=== PATIENT | female | born 1935 | race Caucasian/White ===

== ENCOUNTER 2017-01-03 14:55 | Observation (INO) | payer BC, OTHER ==
--- NOTE | 2017-01-03 16:06 | PDOC ---
History of Present Illness - General Chief Complaint: Syncope/Near Syncope Stated Complaint: PASSED OUT Time Seen by Provider: 01/03/17 16:06 Past History - Past Medical History Allergies/Adverse Reactions: Allergies Allergy/AdvReac Type Severity Reaction Status Date / Time No Known Allergies Allergy Verified 02/04/12 08:45 Home Medications: Ambulatory Orders Escitalopram Oxalate [Lexapro -] 10 mg PO DAILY 11/16/11 Amlodipine Besylate [Norvasc -] 5 mg PO DAILY #0 tablet 11/20/11 Metoprolol Succinate [Toprol XL] 50 mg PO DAILY #0 tablet 11/20/11 Pravastatin Sodium [Pravachol] 40 mg PO HS #0 tablet 11/20/11 Valsartan [Diovan] 160 mg PO DAILY #0 tablet 11/20/11 Acetaminophen [Tylenol .Regular Strength -] 650 mg PO Q4H PRN #0 tablet Amlodipine Besylate [Norvasc -] 5 mg PO DAILY #0 tablet 02/11/12 Atorvastatin Ca [Lipitor] 10 mg PO HS #0 tablet 02/11/12 Cholecalciferol (Vitamin D3) [Vitamin D3 -] 1,000 unit PO DAILY #0 tab 02/11/12 Enoxaparin [Lovenox -] 30 mg SQ BID #0 disp.syrin 02/11/12 Escitalopram Oxalate [Lexapro -] 10 mg PO DAILY #0 tablet 02/11/12 Metoprolol Succinate [Toprol XL -] 50 mg PO DAILY #0 tab.sr.24h 02/11/12 Multivitamins [Multivit ([facility] Formulary)] 1 udtab PO DAILY #0 tab 02/11/12 Oxycodone HCl/Acetaminophen [Percocet 5-325 mg Tablet] 1 combo PO Q4H PRN #0 tablet 02/11/12 Asthma: No Cardiac Disorders: Yes (PACEMAKER) CVA: No CHF: No Diabetes: No HTN: Yes Hypercholesterolemia: Yes - Surgical History Abdominal Surgery: No Cardiac Surgery: Yes (PACEMAKER) Cholecystectomy: Yes Orthopedic Surgery: Yes (L. Ankle) - Suicide/Smoking/Psychosocial Hx Smoking Status: No Smoking History: Never smoked Have you smoked in the past 12 months: No Number of Cigarettes Smoked Daily: 0 Information on smoking cessation initiated: No Hx Alcohol Use: No Drug/Substance Use Hx: No Substance Use Type: None Hx Substance Use Treatment: No *Physical Exam - Vital Signs Last Vital Signs Temp Pulse Resp BP Pulse Ox 97.6 F 67 20 147/69 100 01/03/17 15:09 01/03/17 15:09 01/03/17 15:09 01/03/17 15:09 01/03/17 15:09
[2017-01-03 17:08] LABS: BASOPHIL 0.4 % (0-2.0); EOSINOPHIL 0.8 % (0-4.5); MCH 30.7 pg (25.7-33.7); MCHC 33.1 g/dl (32.0-36.0); MEAN CELL VOLUME 92.8 fl (80-96); MEAN PLT VOLUME 7.9 fl (7.5-11.1); NEUTROPHILS 77.6 % (42.8-82.8); PLATELET COUNT 236 K/MM3 (134-434); RDW 13.1 % (11.6-15.6); WHITE BLOOD COUNT 9.2 K/mm3 (4.0-10.0)
[2017-01-03] MEDS ORDERED: SODIUM CHLORIDE 500 ML IV STA (17:12)
--- NOTE | 2017-01-03 17:18 | PDOC ---
History of Present Illness - General Chief Complaint: Syncope/Near Syncope Stated Complaint: PASSED OUT Time Seen by Provider: 01/03/17 16:06 History Source: Patient Exam Limitations: No Limitations - History of Present Illness Initial Comments: Patient is a 81 Yo F with a PMH of HTN, arthritis, s/p pacemaker (5 years ago) , presented today after witnessed syncopial episode around 2pm while getting into her car. Patient said she was out for about 30 seconds. She felt nauseated immediately after waking up and had 1 episode of vomiting. Patient did not fall or hit her head. She said she had the same symptoms the last time she passed out 5 years ago. She denies shaking movements, loss of bladder control and tongue biting. She denies headaches, fevers, chest pain, diarrhea and abdominal pain. 01/03/17 17:13 Past History - Past Medical History Allergies/Adverse Reactions: Allergies Allergy/AdvReac Type Severity Reaction Status Date / Time No Known Allergies Allergy Verified 02/04/12 08:45 Home Medications: Ambulatory Orders Escitalopram Oxalate [Lexapro -] 10 mg PO DAILY 11/16/11 Amlodipine Besylate [Norvasc -] 5 mg PO DAILY #0 tablet 11/20/11 Metoprolol Succinate [Toprol XL] 50 mg PO DAILY #0 tablet 11/20/11 Pravastatin Sodium [Pravachol] 40 mg PO HS #0 tablet 11/20/11 Valsartan [Diovan] 160 mg PO DAILY #0 tablet 11/20/11 Acetaminophen [Tylenol .Regular Strength -] 650 mg PO Q4H PRN #0 tablet Amlodipine Besylate [Norvasc -] 5 mg PO DAILY #0 tablet 02/11/12 Atorvastatin Ca [Lipitor] 10 mg PO HS #0 tablet 02/11/12 Cholecalciferol (Vitamin D3) [Vitamin D3 -] 1,000 unit PO DAILY #0 tab 02/11/12 Enoxaparin [Lovenox -] 30 mg SQ BID #0 disp.syrin 02/11/12 Escitalopram Oxalate [Lexapro -] 10 mg PO DAILY #0 tablet 02/11/12 Metoprolol Succinate [Toprol XL -] 50 mg PO DAILY #0 tab.sr.24h 02/11/12 Multivitamins [Multivit ([facility] Formulary)] 1 udtab PO DAILY #0 tab 02/11/12 Oxycodone HCl/Acetaminophen [Percocet 5-325 mg Tablet] 1 combo PO Q4H PRN #0 tablet 02/11/12 Asthma: No Cardiac Disorders: Yes (PACEMAKER) CVA: No CHF: No Diabetes: No HTN: Yes Hypercholesterolemia: Yes - Surgical History Abdominal Surgery: No Cardiac Surgery: Yes (PACEMAKER) Cholecystectomy: Yes Orthopedic Surgery: Yes (L. Ankle) - Suicide/Smoking/Psychosocial Hx Smoking Status: No Smoking History: Never smoked Have you smoked in the past 12 months: No Number of Cigarettes Smoked Daily: 0 Information on smoking cessation initiated: No Hx Alcohol Use: No Drug/Substance Use Hx: No Substance Use Type: None Hx Substance Use Treatment: No Review of Systems - Review of Systems Constitutional: No: Chills, Fever, Weakness HEENTM: No: Recent change in vision Respiratory: No: Cough, Wheezing Cardiac (ROS): Yes: Syncope. No: Chest Pain, Palpitations ABD/GI: Yes: Nausea, Vomiting. No: Abdominal Distended, Diarrhea : No: Burning, Dysuria Neurological: No: Headache, Numbness, Paresthesia, Seizure, Tingling, Dizziness *Physical Exam - Vital Signs Last Vital Signs Temp Pulse Resp BP Pulse Ox 97.6 F 67 20 147/69 100 01/03/17 15:09 01/03/17 15:09 01/03/17 15:09 01/03/17 15:09 01/03/17 15:09 - Physical Exam Comments: General: No acute distress, appears comfortable Heent: EOMI, PERRLA, conjunctiva clear Mouth: MMM Heart: Regular rate, no M G R Abdomen: +BS, NT, ND, Soft Ext: No edema, 2+ dp pulses Neuro: no facial droop, symmetrical face, CN 2-12 intact, 5/5 strength throughout 01/03/17 17:28 ED Treatment Course - LABORATORY CBC & Chemistry Diagram: 01/03/17 16:30 01/03/17 16:30 - ADDITIONAL ORDERS Additional order review: Laboratory Results 01/03/17 01/03/17 01/03/17 16:40 16:30 16:30 Sodium 140 Potassium 5.0 D Chloride 105 Carbon Dioxide 31 Anion Gap 4 L BUN 38 H D Creatinine 1.2 H D Creat Clearance w eGFR 43.23 Random Glucose 112 H Calcium 9.8 Total Bilirubin 0.7 AST 18 D ALT 17 Alkaline Phosphatase 45 Troponin I < 0.02 Total Protein 7.4 D Albumin 4.1 D Urine Color Yellow Urine Appearance Cloudy Urine pH 5.0 D Urine Protein Negative Urine Glucose (UA) Negative Urine Ketones Negative Urine Blood 1+ H Urine Nitrite Positive Urine Bilirubin Negative Urine Urobilinogen Negative Urine RBC 5 Urine WBC 388 Ur Epithelial Cells Moderate Urine Bacteria Many Hyaline Casts 5 Urine Mucus Rare 01/03/17 16:30 RBC 3.97 D MCV 92.8 MCHC 33.1 RDW 13.1 MPV 7.9 Neutrophils % 77.6 Lymphocytes % 14.0 Monocytes % 7.2 Eosinophils % 0.8 Basophils % 0.4 - Medications Given in the ED: ED Medications Discontinued Medications Generic Name Dose Route Start Last Admin Trade Name Freq PRN Reason Stop Dose Admin Ceftriaxone Sodium 1,000 mg 01/03/17 17:56 01/03/17 18:41 Rocephin - IVPUSH 01/03/17 17:57 Not Given ONCE ONE Ceftriaxone Sodium 1 gm 01/03/17 17:57 01/03/17 18:45 Rocephin 1gm Ivpb (Pre-Docked) IVPB 01/03/17 17:58 1 gm ONCE ONE Administration Protocol Sodium Chloride 500 mls @ 500 mls/hr 01/03/17 17:12 01/03/17 17:23 Normal Saline - IV 01/03/17 18:11 500 mls/hr ASDIR STA Administration Medical Decision Making - Medical Decision Making #Syncopial Episode - r/o arrhythmia vs. UTI vs. Hypovolemia vs. Vasovagal -EKG with ventricular paced rhythm -previous episode of syncope 5 years ago -Pacemaker placed for dima-arrythmia -UA positive : Ceftriaxone 1gm -CBC WNL #HOLDEN -possibly secondary to volume depletion -UTI -poor oral intake -IV fluids Discussed case with Dr. Elise, agrees to admit patient. 01/03/17 18:02 *DC/Admit/Observation/Transfer Diagnosis at time of Disposition: HOLDEN (acute kidney injury), Dehydration Syncope Qualifiers: Syncope type: unspecified Qualified Code(s): R55 - Syncope and collapse UTI (urinary tract infection) Qualifiers: Urinary tract infection type: site unspecified Hematuria presence: without hematuria Qualified Code(s): N39.0 - Urinary tract infection, site not specified - Discharge Dispostion Condition at time of disposition: Fair Admit: Yes Decision to Admit order Date/Time: Decision to Admit Order Category Date Time Status Decision to Admit to Hospital Routine Admission 01/03/17 18:45 Active - Referrals Referrals: Paolo Gamez MD [Primary Care Provider] -
[2017-01-03 17:30] LABS: URINE APPEARANCE CLOUDY; URINE BILIRUBIN NEGATIVE (NEGATIVE); URINE BLOOD 1+ (NEGATIVE); URINE COLOR YELLOW; URINE GLUCOSE (UA) NEGATIVE (NEGATIVE); URINE KETONE NEGATIVE (NEGATIVE); URINE NITRITE POSITIVE (NEGATIVE); URINE PROTEIN NEGATIVE (NEGATIVE); URINE UROBILINOGEN NEGATIVE mg/dL (0.2-1.0)
[2017-01-03 17:31] LABS: URINE BACTERIA MANY /hpf (NONE SEEN); URINE HYALINE CAST 5 /lpf; URINE MUCUS RARE; URINE RBC 5 /hpf (0-3); URINE WBC 388 /hpf (3-5)
[2017-01-03 17:41] LABS: ALBUMIN 4.1 g/dl (3.4-5.0); ANION GAP 4 (8-16); BILIRUBIN,TOTAL 0.7 mg/dL (0.2-1.0); CALCIUM 9.8 mg/dL (8.5-10.1); CO2 31 mmol/L (21-32); CREATININE 1.2 mg/dL (0.55-1.02); GLUCOSE,RANDOM 112 mg/dL (74-106); SGPT/ALT 17 U/L (12-78); TOT PROT 7.4 g/dl (6.4-8.2)
[2017-01-03 17:42] LABS: ALK PHOS 45 U/L (45-117)
[2017-01-03 17:43] LABS: SGOT/AST 18 U/L (15-37)
[2017-01-03] MEDS ORDERED: cefTRIAXone 1 GM/50 ML BAG (PRE-DOCKED) IVPB ONE (17:57)
--- NOTE | 2017-01-03 18:02 | PDOC ---
Attending Attestation - Resident Resident Name: Petros Bee - ED Attending Attestation I have performed the following: I have examined & evaluated the patient, The case was reviewed & discussed with the resident, I agree w/resident's findings & plan, Exceptions are as noted - HPI HPI: 01/03/17 18:25 81-year-old female with history of hypertension, arthritis, status post pacemaker placement for symptomatic bradycardia presents to the ER after a witnessed syncopal episode lasting approximately 30 seconds without seizure- like activity or post ictal state. - Physicial Exam PE: 01/03/17 18:25 Patient is awake and alert, well-appearing, in no distress cn ii-xii grossly intact; motor is 5 of 54;, there is no pronation drift; perrla; eomi cta rrr sft, nt, nd - Medical Decision Making 01/03/17 18:26 Patient is a well-appearing 81-year-old female with history of hypertension, arthritis, status post pacemaker placement presents after a witnessed syncopal episode. CBC reveals no evidence of significant anemia or leukocytosis. CMP reveals elevated BUN and creatinine when compared to previous consistent with prerenal azotemia. Urinalysis reveals pyuria which is nitrite positive. EKG reveals an atrial sensed ventricularly paced rhythm without evidence of acute ischemia. Chest x-ray reveals no evidence of cardiomegaly, there is no infiltrate or effusion. Will rule out cardiogenic Syncope at this time. Patient will be hydrated, IV antibiotics will be administered for UTI and she'll be placed in observation for further evaluation of syncope. Will consult cardiology.
[2017-01-03] MEDS ORDERED: CEFTRIAXONE 50 ML ONE (18:37)
[2017-01-03] MEDS ORDERED: DEXTROSE 5%-0.45% SALINE 1,000 ML IV SCH (20:30)
--- NOTE | 2017-01-03 21:38 | HP ---
Admitting History and Physical - Admission Chief Complaint: passed out History of Present Illness: 81 yo female presents to hospital after an episode of syncope. Patient had eaten breakfast but then was out with her grandkids and dtr and son-in-law at a Halloween event, where there was a lot of walking involved. She notes that they had left so quickly this afternoon that she never had a chance to eat lunch. She began to feel faint, like she was going to pass out and walked to her car to sit down, the next thing she knew she woke up with her family around her. Her son-in-law had caught her, so she did not fall to the ground, but was unconscious for about 30 sec. Noted a similar episode in the past which was deemed to be due to dehydration. She did have a history of bradycardia and had a pPM placed about 5 years ago. Notes a recent pacemeaker check, withotu problems noted. Feels fine now, no chest pain, no shortness of breath, no diarrhea. Was found to have UTI in ED. 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 Cardiovascular: Yes: HTN, Hyperlipdemia, Other (Sick SInus Syndrome/ high grade AV-block) Psych: Yes: Anxiety Musculoskeletal: Yes: Osteoarthritis Endocrine: Yes: Other (osteoporosis) - Past Surgical History Past Surgical History: Yes: Permanent Pacemaker Additional Past Surgical History: ORIF left hip s/p fall/fracture - Smoking History Smoking history: Never smoked Have you smoked in the past 12 months: No Aproximately how many cigarettes per day: 0 - Alcohol/Substance Use Hx Alcohol Use: No - Social History 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) Other Social History: , 3 children (1 ) Home Medications - Allergies Allergies/Adverse Reactions: Allergies Allergy/AdvReac Type Severity Reaction Status Date / Time No Known Allergies Allergy Verified 02/04/12 08:45 - Home Medications Home Medications: Ambulatory Orders Escitalopram Oxalate [Lexapro -] 10 mg PO DAILY 01/03/17 Metoprolol Succinate [Toprol Xl] 50 mg PO DAILY 01/03/17 Pravastatin Sodium [Pravachol (Nf)] 40 mg PO HS 01/03/17 Valsartan [Diovan] 320 mg PO DAILY 01/03/17 Family Disease History - Family Disease History Family Disease History: Heart Disease: Mother, [place]: Father (Lung), Brother (Lung) , Daughter (pancreatic) Review of Systems - Review of Systems Constitutional: denies: Fever, Loss of Appetite, Weakness Eyes: reports: No Symptoms HENT: denies: Difficult Swallowing Neck: denies: Decreased ROM, Stiffness, Tenderness Cardiovascular: denies: Chest Pain, Palpitations Respiratory: denies: Cough, SOB, Wheezing Gastrointestinal: denies: Abdominal Pain, Constipation, Diarrhea, Melena, Nausea , Vomiting Genitourinary: denies: Burning, Dysuria Physical Examination Vital Signs: Vital Signs Temperature 97.6 F 01/03/17 15:09 Pulse Rate 67 01/03/17 15:09 Respiratory Rate 20 01/03/17 15:09 Blood Pressure 147/69 01/03/17 15:09 O2 Sat by Pulse Oximetry (%) 100 01/03/17 15:09 Constitutional: Yes: No Distress, Thin Eyes: Yes: Conjunctiva Clear, EOM Intact, PERRL HENT: Yes: Atraumatic, Normocephalic Neck: Yes: Supple, Trachea Midline Cardiovascular: Yes: Regular Rate and Rhythm, S1, S2. No: Murmur Respiratory: Yes: Regular, CTA Bilaterally. No: Rales, Rhonchi, Wheezes Gastrointestinal: Yes: Normal Bowel Sounds, Soft. No: Distention, Tenderness Edema: No Neurological: Yes: Alert, Oriented Labs: Laboratory Tests 01/03/17 01/03/17 01/03/17 16:30 16:30 16:30 WBC 9.2 RBC 3.97 D Hgb 12.2 D Hct 36.8 D MCV 92.8 MCH 30.7 MCHC 33.1 RDW 13.1 Plt Count 236 MPV 7.9 Neutrophils % 77.6 Lymphocytes % 14.0 Monocytes % 7.2 Eosinophils % 0.8 Basophils % 0.4 Sodium 140 Potassium 5.0 D Chloride 105 Carbon Dioxide 31 Anion Gap 4 L BUN 38 H D Creatinine 1.2 H D Creat Clearance w eGFR 43.23 Random Glucose 112 H Calcium 9.8 Total Bilirubin 0.7 AST 18 D ALT 17 Alkaline Phosphatase 45 Troponin I < 0.02 Total Protein 7.4 D Albumin 4.1 D Urine Color Urine Appearance Urine pH Urine Protein Urine Glucose (UA) Urine Ketones Urine Blood Urine Nitrite Urine Bilirubin Urine Urobilinogen Urine RBC Urine WBC Ur Epithelial Cells Urine Bacteria Hyaline Casts Urine Mucus 01/03/17 16:40 WBC RBC Hgb Hct MCV MCH MCHC RDW Plt Count MPV Neutrophils % Lymphocytes % Monocytes % Eosinophils % Basophils % Sodium Potassium Chloride Carbon Dioxide Anion Gap BUN Creatinine Creat Clearance w eGFR Random Glucose Calcium Total Bilirubin AST ALT Alkaline Phosphatase Troponin I Total Protein Albumin Urine Color Yellow Urine Appearance Cloudy Urine pH 5.0 D Urine Protein Negative Urine Glucose (UA) Negative Urine Ketones Negative Urine Blood 1+ H Urine Nitrite Positive Urine Bilirubin Negative Urine Urobilinogen Negative Urine RBC 5 Urine WBC 388 Ur Epithelial Cells Moderate Urine Bacteria Many Hyaline Casts 5 Urine Mucus Rare Imaging - Results Chest X-ray: Image Reviewed (-no infiltrates or effusions) Problem List - Problems (1) Syncope Assessment/Plan: -likely due to dehydration -start IVF, cardio to consult Code(s): R55 - SYNCOPE AND COLLAPSE Qualifiers: Syncope type: unspecified Qualified Code(s): R55 - Syncope and collapse ; R55 - Syncope and collapse (2) Dehydration Assessment/Plan: -IVF, patient encouraged to eat Code(s): E86.0 - DEHYDRATION (3) UTI (urinary tract infection) Assessment/Plan: -possibly contributed to syncope as well -start Ceftriaxone Code(s): N39.0 - URINARY TRACT INFECTION, SITE NOT SPECIFIED Qualifiers: Urinary tract infection type: site unspecified Hematuria presence: without hematuria Qualified Code(s): N39.0 - Urinary tract infection, site not specified; N39.0 - Urinary tract infection, site not specified; R31.9 - Hematuria, unspecified; R31.9 - Hematuria, unspecified (4) Hypertension Assessment/Plan: -controlled on metoprolol and Diovan Code(s): I10 - ESSENTIAL (PRIMARY) HYPERTENSION (5) Pacemaker Assessment/Plan: -cardio to evaluate -?need for pacemaker interogation Code(s): Z95.0 - PRESENCE OF CARDIAC PACEMAKER
[2017-01-03] MEDS ORDERED: ATORVASTATIN CA 10 MG TABLET (FP) PO SCH (22:00)
[2017-01-03 22:07] LABS: URINE LEUK ESTERASE 2+ (NEGATIVE)
[2017-01-04 06:41] LABS: BASOPHIL 0.6 % (0-2.0); EOSINOPHIL 1.2 % (0-4.5); MCH 30.9 pg (25.7-33.7); MCHC 33.7 g/dl (32.0-36.0); MEAN CELL VOLUME 91.8 fl (80-96); MEAN PLT VOLUME 7.4 fl (7.5-11.1); PLATELET COUNT 207 K/MM3 (134-434); RDW 13.1 % (11.6-15.6); WHITE BLOOD COUNT 6.8 K/mm3 (4.0-10.0)
[2017-01-04 08:04] LABS: ALBUMIN 3.6 g/dl (3.4-5.0); ALK PHOS 39 U/L (45-117); ANION GAP 8 (8-16); BILIRUBIN,TOTAL 0.4 mg/dL (0.2-1.0); CALCIUM 8.8 mg/dL (8.5-10.1); CO2 26 mmol/L (21-32); CPK 112 IU/L (26-192); CREATININE 0.9 mg/dL (0.55-1.02); GLUCOSE,RANDOM 91 mg/dL (74-106); SGOT/AST 17 U/L (15-37); SGPT/ALT 14 U/L (12-78); TOT PROT 6.4 g/dl (6.4-8.2); TROPONIN I < 0.02 ng/ml (0.00-0.05)
--- NOTE | 2017-01-04 08:05 | CON.CARD ---
Consult Consult Specialty:: cardio Referred by:: jasper Reason for Consultation:: syncope - History of Present Illness Chief Complaint: same History of Present Illness: 81 yo female presents to hospital after an episode of syncope. Patient had eaten breakfast with decaf coffee, no fluids all day. then was out with her grandkid and dtr and son-in-law at a Halloween event, where there was a lot of walking involved. She notes that she skipped lunch on the DOA. She felt fine, sat on bumper of car just to rest, and then shortly after began to feel strange, head "here and there", like LH sensation. went to sit in car b/c of this sensation and immediately passed out briefly-- son in law caught her. approx 30 sec LOC per family (witnessed). no reported blood in mouth or other sz stigmata. she denies cp, palpitations, new neuro sx's, sob. 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 Cardio/Vascular: Yes: HTN, Hyperlipdemia, Other (Sick SInus Syndrome/ high grade AV-block) Psych: Yes: Anxiety Musculoskeletal: Yes: Osteoarthritis Endocrine: Yes: Other (osteoporosis) - Past Surgical History Past Surgical History: Yes: Permanent Pacemaker - Alcohol/Substance Use Hx Alcohol Use: No - Smoking History Smoking history: Never smoked Have you smoked in the past 12 months: No Aproximately how many cigarettes per day: 0 - Social History 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) Home Medications - Allergies Allergies/Adverse Reactions: Allergies Allergy/AdvReac Type Severity Reaction Status Date / Time No Known Allergies Allergy Verified 02/04/12 08:45 - Home Medications Home Medications: Ambulatory Orders Escitalopram Oxalate [Lexapro -] 10 mg PO DAILY 01/03/17 Metoprolol Succinate [Toprol Xl] 50 mg PO DAILY 01/03/17 Pravastatin Sodium [Pravachol (Nf)] 40 mg PO HS 01/03/17 Valsartan [Diovan] 320 mg PO DAILY 01/03/17 Family Disease History - Family Disease History Family Disease History: Heart Disease: Mother, [place]: Father (Lung), Brother (Lung) , Daughter (pancreatic) Review of Systems - Review of Systems Constitutional: denies: Chills, Fever Eyes: denies: Eye Pain HENT: denies: Nasal Congestion Neck: denies: Stiffness Cardiovascular: denies: Palpitations Respiratory: denies: Orthopnea, PND Gastrointestinal: denies: Diarrhea, Rectal Bleeding Genitourinary: denies: Burning, Hematuria Musculoskeletal: denies: Muscle Pain Integumentary: denies: Rash Neurological: reports: Syncope. denies: Numbness, Seizure Endocrine: denies: Excessive Sweating Hematology/Lymphatic: denies: Excessive Bleeding Vital Signs: Vital Signs Temperature 97.6 F 01/03/17 15:09 Pulse Rate 78 01/04/17 04:20 Respiratory Rate 17 01/04/17 04:20 Blood Pressure 135/68 01/04/17 04:20 O2 Sat by Pulse Oximetry (%) 100 01/04/17 04:20 Constitutional: Yes: Well Nourished, No Distress Eyes: No: Sclera Icterus HENT: No: Nasal Congestion Neck: No: Decreased ROM Respiratory: Yes: CTA Bilaterally. No: Accessory Muscle Use, Rales, Wheezes Gastrointestinal: Yes: Normal Bowel Sounds. No: Distention, Hepatomegaly, Palpable Mass, Tenderness Cardiovascular: Yes: Regular Rate and Rhythm JVD: No Carotid Bruit: No PMI: Non-Displaced Heart Sounds: Yes: S1, S2. No: Gallop Murmur: No: Systolic Murmur, Diastolic Murmur Musculoskeletal: Yes: Other (No kyphosis) Extremities: No: Cold, Cyanosis Edema: No Peripheral Pulses: 2+ Left Carotid, 2+ Right Carotid, 2+ Left Doralis Pedis, 2+ Right Dorsalis Pedis Integumentary: No: Jaundice Neurological: Yes: Alert, Oriented (x3) Psychiatric: No: Agitated - Other Data Labs, Other Data: CBC, BMP 01/04/17 06:26 Laboratory Tests 01/03/17 01/03/17 01/04/17 16:30 16:30 06:26 WBC 6.8 Hgb 10.6 L D Plt Count 207 Sodium 140 Potassium 5.0 D Carbon Dioxide 31 BUN 38 H D Creatinine 1.2 H D AST 18 D ALT 17 Troponin I < 0.02 tele: v-paced, no pause/dima; rare PVCs, NSVT x3b Assessment/Plan CXR: clear lungs/pleura ECG: NSR, v-paced syncope: -hx strongly suggestive of vasovagal etiology, similar to prior episode with trigger of prolonged standing in setting of volume depletion, and typical prodrome/assctd post-event sx's of nausea -labs c/w prerenal picture -PM normal function on office check last month, with 5 yrs left on battery and good thresholds -no evidence of PM dysfunction here on ER tele review -encourage not to skip meals, incr po fluids Nonsustained Vtach: -3b run on tele -preserved LVEF recently on office echo--not at risk for VT/VF and current syncope not suspicious for malignant ventric arrhythmia (fairly prolonged prodrome) PPM: -underlying CHB, pacer dependent -normal fxn 11/23, cont routine office f/u HTN: -bp controlled -cont home meds OK FOR D/C FROM [facility] P.O.V.
[2017-01-04 08:22] VITALS: TEMP 97.8
--- NOTE | 2017-01-04 09:09 | EKG ---
Test Reason : Blood Pressure : / mmHG Vent. Rate : 069 BPM Atrial Rate : 069 BPM P-R Int : 160 ms QRS Dur : 162 ms QT Int : 472 ms P-R-T Axes : 070 -67 089 degrees QTc Int : 505 ms Atrial-sensed ventricular-paced rhythm ABNORMAL ECG WHEN COMPARED WITH ECG OF 04-FEB-2012 09:03, ELECTRONIC VENTRICULAR PACEMAKER HAS REPLACED SINUS RHYTHM Confirmed by PEÑA SMITH, GEOFFREY ([id number]) on 01/04/2017 9:08:53 AM Referred By: Confirmed By:GEOFFREY POMPA MD
[2017-01-04] MEDS ORDERED: CEFTRIAXONE 50 ML ONE (09:10)
[2017-01-04] MEDS ORDERED: CEFTRIAXONE 1 G/50 ML PREMIX 50 ML IVPB SCH (10:00)
[2017-01-04] MEDS ORDERED: ESCITALOPRAM OXALATE 10 MG TABLET (FP) PO SCH (10:00)
[2017-01-04] MEDS ORDERED: METOPROLOL SUCCINATE 50 MG TAB.SR.24H (FP) PO SCH (10:00)
[2017-01-04] MEDS ORDERED: VALSARTAN 160 MG TABLET (UD) PO SCH (10:00)
--- NOTE | 2017-01-04 10:16 | DS ---
Physical Examination Vital Signs: Vital Signs Temperature 97.8 F 01/04/17 08:21 Pulse Rate 85 01/04/17 08:21 Respiratory Rate 17 01/04/17 08:21 Blood Pressure 128/72 01/04/17 08:21 O2 Sat by Pulse Oximetry (%) 100 01/04/17 08:21 Constitutional: Yes: No Distress, Calm Eyes: Yes: Conjunctiva Clear, EOM Intact HENT: Yes: Atraumatic, Normocephalic Neck: Yes: Supple, Trachea Midline Cardiovascular: Yes: Regular Rate and Rhythm, S1, S2. No: Murmur Respiratory: Yes: Regular, CTA Bilaterally. No: Rales, Rhonchi, Wheezes Gastrointestinal: Yes: Normal Bowel Sounds. No: Distention, Tenderness Edema: No Neurological: Yes: Alert, Oriented Labs: CBC, BMP 01/04/17 06:26 01/04/17 06:00 Discharge Summary Reason For Visit: ACUTE KIDNEY INJURY/URINARY TRACT INFECTION/SYNCOP Current Active Problems HOLDEN (acute kidney injury) (Acute) Dehydration (Acute) Hypertension (Acute) Pacemaker (Acute) Syncope (Acute) UTI (urinary tract infection) (Acute) Hospital Course: 81 yo female admitted to observation after a witnessed syncopal episode, occurred after being out all day and not eating lunch. Cardiac enzymes were negative, patient noted to have elevated BUN, consistent with dehydration and also found to have UTI. Started on abx and IVF, seen by cardiology with no acute cardio problems noted. Discharged with course of cipro for UTI. Condition: Fair - Instructions Referrals: Thor Gamez MD [Staff Physician] - Disposition: HOME - Home Medications Comprehensive Discharge Medication List: Ambulatory Orders Escitalopram Oxalate [Lexapro -] 10 mg PO DAILY 01/03/17 Metoprolol Succinate [Toprol Xl] 50 mg PO DAILY 01/03/17 Pravastatin Sodium [Pravachol -] 40 mg PO HS 01/03/17 Valsartan [Diovan] 320 mg PO DAILY 01/03/17 Ciprofloxacin [Cipro -] 500 mg PO Q12H #10 tablet 01/04/17
[2017-01-04 12:45] VITALS: BP 124/66; PULSE 66; BMI 24.1
== END 2017-01-04 13:00 | disposition home or self-care (01) ==
LOC: JER 14:55 → JERBED 18:45 → INTOOBSV 18:45
PROVIDERS: ADMIT Internal Medicine; ATTEND Internal Medicine
PROC: 3E03329 Introduction of Other Anti-infective into Peripheral Vein, Percutaneous Approach (ICD-10-PCS; principal; 2017-01-03)
PROC: 3E0337Z Introduction of Electrolytic and Water Balance Substance into Peripheral Vein, Percutaneous Approach (ICD-10-PCS; 2017-01-03)
DX: E86.0 Dehydration (principal); N17.9 Acute kidney failure, unspecified; N39.0 Urinary tract infection, site not specified; R55 Syncope and collapse; I10 Essential (primary) hypertension; Z95.0 Presence of cardiac pacemaker; E78.5 Hyperlipidemia, unspecified; F41.9 Anxiety disorder, unspecified; M81.0 Age-related osteoporosis without current pathological fracture; M19.90 Unspecified osteoarthritis, unspecified site
CPT/HCPCS: 36415; 71010-TC; 80053; 81003; 81015; 82550; 84484; 85025; 87086; 87186; 93005; 93010; 96374; 99285-25; G0378

== ENCOUNTER 2017-12-04 13:22 | Emergency (ER) | payer OTHER, BC ==
--- NOTE | 2017-12-04 13:36 | PDOC ---
History of Present Illness - General Chief Complaint: Back Pain Stated Complaint: LOWER BACK PAIN Time Seen by Provider: 12/04/17 13:36 - History of Present Illness Initial Comments: 12/04/17 14:47 Pt presents to the ED complaining of atraumatic lower back pain that is focused on her right buttock but is also present in a band like distribution across her lower back. Denies bowel or bladder complaints, leg weakness or numbness. Patient is able to ambulate, but with considerable pain. Has been taking tylenol at home for pain without relief. Past History - Past Medical History Allergies/Adverse Reactions: Allergies Allergy/AdvReac Type Severity Reaction Status Date / Time No Known Allergies Allergy Verified 12/04/17 13:23 Home Medications: Ambulatory Orders Escitalopram Oxalate [Lexapro -] 10 mg PO DAILY 01/03/17 Metoprolol Succinate [Toprol Xl] 50 mg PO HS 01/03/17 Pravastatin Sodium [Pravachol -] 40 mg PO HS 01/03/17 Valsartan [Diovan] 320 mg PO DAILY 01/03/17 Acetaminophen [Tylenol 8 Hour] 650 mg PO PRN PRN 12/04/17 Aspirin [Ecotrin] 81 mg PO DAILY 12/04/17 Lidocaine 5% Patch [Lidoderm -] 1 patch TP DAILY #30 patch 12/04/17 Asthma: No Cardiac Disorders: Yes (PACEMAKER) CVA: No CHF: No Diabetes: No HTN: Yes Hypercholesterolemia: Yes - Surgical History Abdominal Surgery: No Cardiac Surgery: Yes (PACEMAKER) Cholecystectomy: Yes Orthopedic Surgery: Yes (L. Ankle) - Suicide/Smoking/Psychosocial Hx Smoking Status: No Smoking History: Never smoked Have you smoked in the past 12 months: No Number of Cigarettes Smoked Daily: 0 Hx Alcohol Use: No Drug/Substance Use Hx: No Substance Use Type: None Hx Substance Use Treatment: No *Physical Exam - Physical Exam General Appearance: Yes: Nourished, Appropriately Dressed HEENT: positive: Normal ENT Inspection Neck: positive: Supple Respiratory/Chest: positive: Lungs Clear, Normal Breath Sounds Cardiovascular: positive: Regular Rhythm, Regular Rate, S1, S2 Gastrointestinal/Abdominal: positive: Flat, Soft Musculoskeletal: positive: Normal Inspection (no ecchymosis or deformity of back. No step off or midline tenderness. full ROM). negative: CVA Tenderness , CVA Tenderness (R), CVA Tenderness (L), Decreased Range of Motion, Muscle Spasm, Vertebral Tenderness, Other Extremity: positive: Normal Inspection, Normal Range of Motion Integumentary: positive: Normal Color, Dry, Warm Neurologic: positive: Fully Oriented, Alert, Normal Mood/Affect Medical Decision Making - Medical Decision Making 12/04/17 15:25 Pt presents to the ED complaining of atraumatic lower back pain. No signs or symptoms of cord compression. Complains of only minimal pain at this time. XRay checked to evaluate for fx or lytic lesions and is negative. Will discharge with instructions to follow up with Dr. Rizzo on Thursday and to return to the Ed for worsening symptoms. *DC/Admit/Observation/Transfer Diagnosis at time of Disposition: Lower back pain Qualifiers: Chronicity: acute Back pain laterality: midline Sciatica presence: unspecified whether sciatica present Qualified Code(s): M54.5 - Low back pain - Discharge Dispostion Disposition: HOME Condition at time of disposition: Good Decision to Admit order: No - Prescriptions Prescriptions: Lidocaine 5% Patch [Lidoderm -] 1 patch TP DAILY #30 patch - Referrals - Patient Instructions Printed Discharge Instructions: DI for Low Back Pain Additional Instructions: return to the ED for severe pain, especially if you are unable to urinate or if you have incontinence of stool. Also return if you have pain with fever, or weakness or numbness of your legs. You will likely need additional testing. You should call your primary care doctor on Thursday for follow up. - Post Discharge Activity
[2017-12-04 14:11] VITALS: BP 154/79; PULSE 86; TEMP 98.2; BMI 22.6
== END 2017-12-04 15:55 | disposition home or self-care (01) ==
LOC: FER 13:22
DX: M54.5 Low back pain (principal); Z95.0 Presence of cardiac pacemaker; I10 Essential (primary) hypertension; E78.00 Pure hypercholesterolemia, unspecified
CPT/HCPCS: 72100-TC-FY; 99282-25

== ENCOUNTER 2021-09-14 11:45 | Inpatient (IN) | payer OTHER, BC ==
[2021-09-14] MEDS ORDERED: SODIUM CHLORIDE 0.9% 500 ML INFUS.BAG IV ONE (13:02)
[2021-09-14 14:35] LABS: EPI CELLS >36 /uL (0-25.1); HYALINE CASTS 3 /uL (0-3.1); PH,URINE 5.5 (5.0-8.0); URINE APPEARANCE CLOUDY; URINE BACTERIA 62 /uL (0-1359); URINE BILIRUBIN NEGATIVE (NEGATIVE); URINE COLOR DK YELLOW; URINE GLUCOSE (UA) NEGATIVE (NEGATIVE); URINE KETONE NEGATIVE (NEGATIVE); URINE LEUK ESTERASE 1+ (NEGATIVE); URINE NITRITE NEGATIVE (NEGATIVE); URINE PROTEIN TRACE (NEGATIVE); URINE RBC 8 /uL (0-23.9); URINE WBC 34 /uL (0-25.8)
[2021-09-14 14:41] LABS: HEMATOCRIT 34.7 % (32.4-45.2); HEMOGLOBIN 11.6 GM/dL (10.7-15.3); MCH 29.5 pg (25.7-33.7); MCHC 33.3 g/dl (32.0-36.0); MEAN CELL VOLUME 88.5 fl (80-96); MEAN PLT VOLUME 7.3 fl (7.5-11.1); PLATELET COUNT 394 10^3/uL (134-434); RBC 3.92 M/mm3 (3.60-5.2); RDW 13.5 % (11.6-15.6); WHITE BLOOD COUNT 5.1 K/mm3 (4.0-10.0)
[2021-09-14 14:59] LABS: ALBUMIN 3.4 g/dl (3.4-5.0); BLOOD UREA NITROGEN 13.9 mg/dL (7-18); CALCIUM 8.9 mg/dL (8.5-10.1)
[2021-09-14 15:00] LABS: MAGNESIUM 2.3 mg/dL (1.8-2.4)
[2021-09-14 15:02] LABS: CREATININE 0.9 mg/dL (0.55-1.3); PHOSPHOROUS 2.6 mg/dL (2.5-4.9)
[2021-09-14 15:04] LABS: BILIRUBIN,TOTAL 0.6 mg/dL (0.2-1); TOT PROT 6.5 g/dl (6.4-8.2)
[2021-09-14] MEDS ORDERED: CEFTRIAXONE 1,000 MG in DEXTROSE 5%-WATER - 50 ML IVPB ONE (15:14)
[2021-09-14] MEDS ORDERED: CEFTRIAXONE 1 GM/50 ML BAG ONE (15:34)
[2021-09-14] MEDS ORDERED: ACETAMINOPHEN 325 MG TABLET (FP) PO PRN (16:02)
[2021-09-14] MEDS ORDERED: HEPARIN NA (PORCINE) 5,000 UNITS/ML 1ML VIAL ONE (21:52)
[2021-09-14] MEDS ORDERED: ATORVASTATIN CA 10 MG TABLET (FP) ONE (21:52)
[2021-09-14] MEDS: ATORVASTATIN CA 10 MG TABLET (FP) PO SCH (22:10)
[2021-09-14] MEDS: DEXTROSE 5%-NORMAL SALINE 1,000 ML IV SCH (22:10)
[2021-09-14] MEDS: HEPARIN NA (PORCINE) 5,000 UNITS/ML 1ML VIAL SQ SCH (22:17)
[2021-09-15] MEDS: DEXTROSE 5%-NORMAL SALINE 1,000 ML IV SCH ×2 (06:21→19:36)
[2021-09-15] MEDS ORDERED: DEXTROSE 5%-WATER - 50 ML IVPB ONE (10:59)
[2021-09-15] MEDS ORDERED: cefTRIAXone SODIUM 1 GM VIAL ONE (10:59)
[2021-09-15] MEDS: ASPIRIN COATED 81 MG TABLET.EC PO SCH (11:35)
[2021-09-15] MEDS: ESCITALOPRAM OXALATE 10 MG TABLET PO SCH (11:35)
[2021-09-15] MEDS: HEPARIN NA (PORCINE) 5,000 UNITS/ML 1ML VIAL SQ SCH ×2 (11:35→21:48)
[2021-09-15] MEDS: VALSARTAN 160 MG TABLET PO SCH (11:35)
[2021-09-15] MEDS: CEFTRIAXONE 1 GM in DEXTROSE 5%-WATER - 50 ML IVPB SCH (11:36)
[2021-09-15 14:29] VITALS: BMI 17.4
[2021-09-15] MEDS: ATORVASTATIN CA 10 MG TABLET (FP) PO SCH (21:48)
[2021-09-16] MEDS: DEXTROSE 5%-NORMAL SALINE 1,000 ML IV SCH ×2 (06:21→16:33)
[2021-09-16] MEDS ORDERED: cefTRIAXone SODIUM 1 GM VIAL ONE (10:20)
[2021-09-16] MEDS ORDERED: DEXTROSE 5%-WATER - 50 ML IVPB ONE (10:20)
[2021-09-16] MEDS: VALSARTAN 160 MG TABLET PO SCH (10:22)
[2021-09-16] MEDS: ASPIRIN COATED 81 MG TABLET.EC PO SCH (10:23)
[2021-09-16] MEDS: ESCITALOPRAM OXALATE 10 MG TABLET PO SCH (10:24)
[2021-09-16] MEDS: CEFTRIAXONE 1 GM in DEXTROSE 5%-WATER - 50 ML IVPB SCH (10:27)
[2021-09-16] MEDS: HEPARIN NA (PORCINE) 5,000 UNITS/ML 1ML VIAL SQ SCH (10:27)
[2021-09-16 11:05] LABS: BASO % 0.6 % (0-2.0); EOS % 2.1 % (0-4.5); HEMATOCRIT 30.7 % (32.4-45.2); HEMOGLOBIN 10.3 GM/dL (10.7-15.3); LYMPH % 25.5 % (8-40); MCH 30.1 pg (25.7-33.7); MCHC 33.5 g/dl (32.0-36.0); MEAN CELL VOLUME 89.9 fl (80-96); MEAN PLT VOLUME 7.3 fl (7.5-11.1); MONO % 9.2 % (3.8-10.2); NEUT % 62.6 % (42.8-82.8); PLATELET COUNT 308 10^3/uL (134-434); RBC 3.42 M/mm3 (3.60-5.2); RDW 13.2 % (11.6-15.6); WHITE BLOOD COUNT 4.3 K/mm3 (4.0-10.0)
[2021-09-16 11:34] LABS: CALCIUM 8.2 mg/dL (8.5-10.1)
[2021-09-16 11:35] LABS: ALBUMIN 2.7 g/dl (3.4-5.0); BLOOD UREA NITROGEN 9.9 mg/dL (7-18); MAGNESIUM 2.2 mg/dL (1.8-2.4)
[2021-09-16 11:37] LABS: CREATININE 0.8 mg/dL (0.55-1.3)
[2021-09-16 11:39] LABS: BILIRUBIN,TOTAL 0.4 mg/dL (0.2-1); TOT PROT 5.4 g/dl (6.4-8.2)
[2021-09-16 14:31] LABS: URINE APPEARANCE CLEAR; URINE BILIRUBIN NEGATIVE (NEGATIVE); URINE COLOR YELLOW; URINE GLUCOSE (UA) NEGATIVE (NEGATIVE); URINE KETONE NEGATIVE (NEGATIVE); URINE LEUK ESTERASE NEGATIVE (NEGATIVE); URINE NITRITE NEGATIVE (NEGATIVE); URINE PROTEIN NEGATIVE (NEGATIVE)
[2021-09-16] MEDS: ATORVASTATIN CA 10 MG TABLET (FP) PO SCH (22:03)
[2021-09-17 08:59] LABS: BASO % 0.9 % (0-2.0); EOS % 2.5 % (0-4.5); HEMATOCRIT 30.8 % (32.4-45.2); HEMOGLOBIN 10.2 GM/dL (10.7-15.3); MCH 29.6 pg (25.7-33.7); MCHC 33.1 g/dl (32.0-36.0); MEAN CELL VOLUME 89.4 fl (80-96); MEAN PLT VOLUME 7.3 fl (7.5-11.1); MONO % 11.2 % (3.8-10.2); NEUT % 61.4 % (42.8-82.8); PLATELET COUNT 280 10^3/uL (134-434); RBC 3.44 M/mm3 (3.60-5.2); RDW 13.5 % (11.6-15.6); WHITE BLOOD COUNT 4.3 K/mm3 (4.0-10.0)
[2021-09-17] MEDS ORDERED: DEXTROSE 5%-WATER - 50 ML IVPB ONE (09:12)
[2021-09-17] MEDS ORDERED: cefTRIAXone SODIUM 1 GM VIAL ONE (09:12)
[2021-09-17] MEDS: ASPIRIN COATED 81 MG TABLET.EC PO SCH (09:14)
[2021-09-17] MEDS: VALSARTAN 160 MG TABLET PO SCH (09:14)
[2021-09-17] MEDS: ESCITALOPRAM OXALATE 10 MG TABLET PO SCH (09:14)
[2021-09-17] MEDS: ENOXAPARIN NA (PORCINE) 30 MG/0.3 ML DISP.SYRIN SQ SCH (09:15)
[2021-09-17] MEDS: CEFTRIAXONE 1 GM in DEXTROSE 5%-WATER - 50 ML IVPB SCH (09:15)
[2021-09-17 09:34] LABS: CALCIUM 8.5 mg/dL (8.5-10.1); MAGNESIUM 2.1 mg/dL (1.8-2.4)
[2021-09-17 09:35] LABS: ALBUMIN 2.7 g/dl (3.4-5.0)
[2021-09-17 09:37] LABS: CREATININE 0.8 mg/dL (0.55-1.3)
[2021-09-17 09:39] LABS: BILIRUBIN,TOTAL 0.4 mg/dL (0.2-1); TOT PROT 5.3 g/dl (6.4-8.2)
[2021-09-17] MEDS: DEXTROSE 5%-NORMAL SALINE 1,000 ML IV SCH (16:24)
[2021-09-17] MEDS: ATORVASTATIN CA 10 MG TABLET (FP) PO SCH (21:12)
[2021-09-18] MEDS: DEXTROSE 5%-NORMAL SALINE 1,000 ML IV SCH ×2 (05:56→21:09)
[2021-09-18] MEDS ORDERED: cefTRIAXone SODIUM 1 GM VIAL ONE (08:47)
[2021-09-18] MEDS ORDERED: DEXTROSE 5%-WATER - 50 ML IVPB ONE (08:47)
[2021-09-18 09:21] LABS: BASO % 0.5 % (0-2.0); HEMATOCRIT 33.5 % (32.4-45.2); HEMOGLOBIN 11.1 GM/dL (10.7-15.3); LYMPH % 21.7 % (8-40); MCH 29.6 pg (25.7-33.7); MCHC 33.2 g/dl (32.0-36.0); MEAN CELL VOLUME 89.1 fl (80-96); MEAN PLT VOLUME 7.5 fl (7.5-11.1); MONO % 8.4 % (3.8-10.2); NEUT % 67.4 % (42.8-82.8); PLATELET COUNT 303 10^3/uL (134-434); RBC 3.76 M/mm3 (3.60-5.2); RDW 13.5 % (11.6-15.6); WHITE BLOOD COUNT 4.2 K/mm3 (4.0-10.0)
[2021-09-18] MEDS: ENOXAPARIN NA (PORCINE) 30 MG/0.3 ML DISP.SYRIN SQ SCH (10:29)
[2021-09-18] MEDS: CEFTRIAXONE 1 GM in DEXTROSE 5%-WATER - 50 ML IVPB SCH (10:30)
[2021-09-18] MEDS: ASPIRIN COATED 81 MG TABLET.EC PO SCH (10:33)
[2021-09-18] MEDS: ESCITALOPRAM OXALATE 10 MG TABLET PO SCH (10:36)
[2021-09-18] MEDS: VALSARTAN 160 MG TABLET PO SCH (10:37)
[2021-09-18 10:38] LABS: CALCIUM 8.6 mg/dL (8.5-10.1); MAGNESIUM 2.2 mg/dL (1.8-2.4)
[2021-09-18 10:40] LABS: PHOSPHOROUS 2.9 mg/dL (2.5-4.9)
[2021-09-18 10:41] LABS: CREATININE 0.7 mg/dL (0.55-1.3)
[2021-09-18] MEDS: ATORVASTATIN CA 10 MG TABLET (FP) PO SCH (21:50)
[2021-09-19] MEDS: DEXTROSE 5%-NORMAL SALINE 1,000 ML IV SCH (02:00)
[2021-09-19 09:21] LABS: HEMATOCRIT 31.5 % (32.4-45.2); HEMOGLOBIN 10.5 GM/dL (10.7-15.3); MCH 29.7 pg (25.7-33.7); MCHC 33.3 g/dl (32.0-36.0); MEAN CELL VOLUME 89.2 fl (80-96); MEAN PLT VOLUME 7.2 fl (7.5-11.1); PLATELET COUNT 277 10^3/uL (134-434); RBC 3.53 M/mm3 (3.60-5.2); RDW 13.7 % (11.6-15.6); WHITE BLOOD COUNT 4.1 K/mm3 (4.0-10.0)
[2021-09-19] MEDS ORDERED: DEXTROSE 5%-WATER - 50 ML IVPB ONE (09:34)
[2021-09-19] MEDS ORDERED: cefTRIAXone SODIUM 1 GM VIAL ONE (09:34)
[2021-09-19] MEDS: CEFTRIAXONE 1 GM in DEXTROSE 5%-WATER - 50 ML IVPB SCH (09:58)
[2021-09-19] MEDS: ASPIRIN COATED 81 MG TABLET.EC PO SCH (09:58)
[2021-09-19] MEDS: VALSARTAN 160 MG TABLET PO SCH (09:58)
[2021-09-19] MEDS: ESCITALOPRAM OXALATE 10 MG TABLET PO SCH (09:58)
[2021-09-19] MEDS: ENOXAPARIN NA (PORCINE) 30 MG/0.3 ML DISP.SYRIN SQ SCH (09:58)
[2021-09-19 10:25] LABS: CALCIUM 8.2 mg/dL (8.5-10.1)
[2021-09-19 10:26] LABS: BLOOD UREA NITROGEN 7.9 mg/dL (7-18); MAGNESIUM 2.1 mg/dL (1.8-2.4)
[2021-09-19 10:30] LABS: CREATININE 0.6 mg/dL (0.55-1.3)
[2021-09-19] MEDS ORDERED: ESCITALOPRAM OXALATE 10 MG TABLET PO SCH (10:32)
[2021-09-19] MEDS ORDERED: ATORVASTATIN CA 20 MG TABLET (FP) PO SCH (10:33)
[2021-09-19 13:55] VITALS: BP 111/60; PULSE 74; TEMP 98.2
[2021-09-20] MEDS ORDERED: ESCITALOPRAM OXALATE 10 MG TABLET PO SCH (10:00)
== END 2021-09-19 14:20 | DRG 884 ==
LOC: JER 11:45 → JERBED 15:48 → J8W 09-15 00:45
PROVIDERS: ADMIT Internal Medicine; ATTEND Internal Medicine
DX: F03.90 Unspecified dementia, unspecified severity, without behavioral disturbance, psychotic disturbance, mood disturbance, and anxiety (principal); S32.591A Other specified fracture of right pubis, initial encounter for closed fracture; N39.0 Urinary tract infection, site not specified; Z68.1 Body mass index [BMI] 19.9 or less, adult; E46 Unspecified protein-calorie malnutrition; N17.9 Acute kidney failure, unspecified; I10 Essential (primary) hypertension; Z95.0 Presence of cardiac pacemaker; R63.4 Abnormal weight loss; E78.5 Hyperlipidemia, unspecified; F41.9 Anxiety disorder, unspecified; M81.0 Age-related osteoporosis without current pathological fracture; J44.9 Chronic obstructive pulmonary disease, unspecified; L89.322 Pressure ulcer of left buttock, stage 2; L89.312 Pressure ulcer of right buttock, stage 2; W18.39XA Other fall on same level, initial encounter; Y92.098 Other place in other non-institutional residence as the place of occurrence of the external cause
CPT/HCPCS: 36415; 70450-TC; 71045-TC-FY; 72100-TC-FY; 72125-TC; 72192-TC; 73521-TC-FY; 80048; 80053; 81003; 82607; 82962; 83735; 84100; 84443; 84484; 85025; 85027; 86780; 87086; 93005; 93010; 97116-GP; 97161-GP; 99285-25; C9803-CS; J1644; U0003; U0005